=== PATIENT | female | born 1995 | race Caucasian/White ===

== ENCOUNTER 2016-06-12 17:50 | Emergency (ER) | payer BC ==
[~2016-06-12] VITALS: Ht 167.6 cm; Wt 63.6 kg
[~2016-06-12 17:50] MED LIST: CNC/36 PO; EPP3/2 IM; PRED20TA2 PO
[2016-06-12 17:53] VITALS: TEMP 36.5; Ht 167.6 cm; Wt 63.6 kg
[2016-06-12] MEDS ORDERED: BCPILLS PO (18:20)
[2016-06-12] MEDS ORDERED: LORAZEPAM 1 MG TAB SL STA (18:28)
[2016-06-12] MEDS ORDERED: ONDANSETRON INJ 2 MG/ML 2 ML VIAL IV STA (18:28)
[2016-06-12] MEDS ORDERED: KETOROLAC TROMETHAMINE 30 MG/ML VIAL IV STA (18:28)
[2016-06-12] MEDS ORDERED: SODIUM CHLORIDE 0.9% 1000ML 1,000 ML IV STA (18:28)
[2016-06-12 19:18] LABS: BASO % 0.1 %; BASO ABS # 0.01 K/uL (0-0.2); COMPLETE YES; HEMATOCRIT 43.2 % (37-47); IG% 0.2 %; LYMPH % 12.2 %; LYMPH ABS # 0.98 K/uL (1.2-3.4); MEAN CELL VOLUME 93.7 fL (80-100); MEAN CORPUSCULAR HEMOGLOBIN 31.9 pg (25-34); MONO % 4.1 %; NEUT % 83.4 %; PLATELET COUNT 269 K/uL (130-400); RED BLOOD COUNT 4.61 M/uL (4.2-5.4); WHITE BLOOD COUNT 8.01 K/uL (4.8-10.8)
[2016-06-12 19:27] LABS: BUN/CREATININE RATIO 27.8 (10-20); CALCIUM 8.9 mg/dl (8.5-10.1); CREATININE 0.66 mg/dl (0.60-1.20); POTASSIUM 4.1 mmol/L (3.5-5.1)
[2016-06-12] MEDS ORDERED: ONDA4TAB10 SL (20:23)
[2016-06-12 20:44] VITALS: BP 112/62; PULSE 73; O2SAT 99
--- NOTE | 2016-06-12 21:08 | EMERGENCY ROOM VISIT NOTE ---
History First contact with patient: 18:20 Chief Complaint: VOMITING Stated Complaint: VOMITING, DIARRHEA, DIZZINESS Nursing Triage Summary: pt reports NV since 0800 today denies fever and chills History of Present Illness The patient is a 21 year old female who presents to the Emergency Room with complaints of nausea, vomiting and watery diarrhea since awakening this morning around 8 AM. The patient reports that her brother and sister had similar symptoms over the past week. The patient just returned from [facility]. The patient does admit to drinking a significant amount of alcohol last night, but has not had any bloody vomitus. She denies prior history of peptic ulcer disease, GERD or gastritis. The patient has not noted any recent urinary symptoms. The patient does not feel chilled. She has been unable to tolerate fluids today, and presents for further evaluation. Review of Systems HEENT: Denies dizziness, visual problems, hearing loss, tinnitus. Denies difficulty swallowing or oral lesions. PULMONARY: Denies cough, shortness of breath, sputum production or hemoptysis. CARDIOVASCULAR: Denies chest pain, palpitations, dyspnea on exertion, orthopnea or peripheral edema. GASTROINTESTINAL: See history of present illness. GENITOURINARY: Denies dysuria, frequency, urgency or nocturia. NEUROLOGIC: Denies history of epilepsy, CVA, TIA or chronic headaches. MUSCULOSKELETAL: Denies history of joint tenderness/swelling. SKIN: Denies rashes or lesions. PSYCHIATRIC: Denies history of depression or mental illness. ENDOCRINE: Denies history of diabetes or thyroid disorders. Past Medical/Surgical History Medical Problems: (1) Tree nut allergy Family History No pertinent family history Social History Smoking Status: Never Smoker Alcohol Use: occasionally Marital Status: single Housing Status: lives with friends Occupation Status: student Current/Historical Medications Scheduled Control Pills ( Control Pills), 1 TAB PO QPM Epinephrine (Epipen), 0.3 MG IM UD Methylphenidate Hcl (Concerta), 36 MG PO DAILY Ondasetron Odt (Zofran Odt), 4 MG SL Q6H Allergies Coded Allergies: Nut Tree (Unverified Allergy, Unknown, ANAPHYLAXIS, 06/12/16) Physical Exam Vital Signs Date Time Temp Pulse Resp B/P Pulse Ox O2 Delivery O2 Flow Rate FiO2 06/12/16 20:44 73 18 112/62 99 06/12/16 19:44 82 18 102/66 98 Room Air 06/12/16 17:53 36.5 76 18 102/64 93 Room Air Pain Rating (0-10): 0 Physical Exam CONSTITUTIONAL: Healthy and well nourished. Alert and oriented X 3 with positive affect. Patient appears in moderate discomfort from nausea. HEENT: Normocephalic, atraumatic. Pupils equal, round and reactive. Ears and nares are clear. No scleral icterus or conjunctival injection/pallor. OROPHARYNX: Mucous membranes are dry. No significant posterior pharyngeal erythema. NECK: Full active range of motion without discomfort. RESPIRATORY: Clear to auscultation bilaterally with no wheezing, crackles, rhonchi or stridor. CARDIOVASCULAR: Regular rate and rhythm with no murmurs, rubs or gallops. GASTROINTESTINAL: Bowel sounds present in all quadrants. Patient has diffuse mild tenderness to palpation. Negative Krause sign. Negative McBurney's point tenderness. Negative CVA tenderness. Negative Rovsing sign. No abdominal rigidity, guarding or rebound. MUSCULOSKELETAL: Full range of motion of all joints without discomfort. INTEGUMENTARY: No rash or other significant dermatologic conditions noted. HEMATOLOGIC: No ecchymosis or petechiae noted. NEUROLOGIC: No focal neurologic deficits noted. Medical Decision & Procedures Laboratory Results 06/12/16 19:00 Red Blood Count 4.61, Mean Corpuscular Volume 93.7, Mean Corpuscular Hemoglobin 31.9, Mean Corpuscular Hemoglobin Concent 34.0, Mean Platelet Volume 12.0, Neutrophils (%) (Auto) 83.4, Lymphocytes (%) (Auto) 12.2, Monocytes (%) (Auto) 4.1, Eosinophils (%) (Auto) 0.0, Basophils (%) (Auto) 0.1, Neutrophils # (Auto) 6.67, Lymphocytes # (Auto) 0.98, Monocytes # (Auto) 0.33, Eosinophils # (Auto) 0.00, Basophils # (Auto) 0.01 06/12/16 19:00 Test 06/12/16 19:00 White Blood Count 8.01 K/uL (4.8-10.8) Red Blood Count 4.61 M/uL (4.2-5.4) Hemoglobin 14.7 g/dL (12.0-16.0) Hematocrit 43.2 % (37-47) Mean Corpuscular Volume 93.7 fL (80-100) Mean Corpuscular Hemoglobin 31.9 pg (25-34) Mean Corpuscular Hemoglobin Concent 34.0 g/dl (32-36) Platelet Count 269 K/uL (130-400) Mean Platelet Volume 12.0 fL (7.4-10.4) Neutrophils (%) (Auto) 83.4 % Lymphocytes (%) (Auto) 12.2 % Monocytes (%) (Auto) 4.1 % Eosinophils (%) (Auto) 0.0 % Basophils (%) (Auto) 0.1 % Neutrophils # (Auto) 6.67 K/uL (1.4-6.5) Lymphocytes # (Auto) 0.98 K/uL (1.2-3.4) Monocytes # (Auto) 0.33 K/uL (0.11-0.59) Eosinophils # (Auto) 0.00 K/uL (0-0.5) Basophils # (Auto) 0.01 K/uL (0-0.2) RDW Standard Deviation 42.7 fL (36.4-46.3) RDW Coefficient of Variation 12.6 % (11.5-14.5) Immature Granulocyte % (Auto) 0.2 % Immature Granulocyte # (Auto) 0.02 K/uL (0.00-0.02) Urine Test NEG (NEG) Anion Gap 6.0 mmol/L (3-11) Est Creatinine Clear Calc Drug Dose 126.1 ml/min Estimated GFR () 146.4 Estimated GFR (Non- 126.3 BUN/Creatinine Ratio 27.8 (10-20) Calcium Level 8.9 mg/dl (8.5-10.1) Total Bilirubin 0.4 mg/dl (0.2-1) Direct Bilirubin 0.1 mg/dl (0-0.2) Aspartate Amino Transf (AST/SGOT) 11 U/L (15-37) Alanine Aminotransferase (ALT/SGPT) 23 U/L (12-78) Alkaline Phosphatase 97 U/L (45-117) Total Creatine Kinase 78 U/L (26-192) Total Protein 7.8 gm/dl (6.4-8.2) Albumin 4.3 gm/dl (3.4-5.0) Lipase 59 U/L (73-393) The above labs were reviewed and were grossly normal. Urine dip stick was also normal with a negative urine . Medications Administered Medications (Trade) Dose Ordered Sig/Timo Route Start Time Stop Time Status Last Admin Dose Admin Ketorolac Tromethamine 30 mg 30 mg NOW STAT IV 06/12/16 18:28 06/12/16 18:30 DC 06/12/16 19:03 30 MG Sodium Chloride (Nss 1000ml) 1,000 ml @ 999 mls/hr Q1H1M STAT IV 06/12/16 18:28 06/12/16 19:28 DC 06/12/16 19:03 999 MLS/HR Ondansetron HCl (Zofran Inj) 4 mg NOW STAT IV 06/12/16 18:28 06/12/16 18:30 DC 06/12/16 19:03 4 MG Lorazepam (Ativan Tab) 1 mg NOW STAT SL 06/12/16 18:28 06/12/16 18:30 DC 06/12/16 18:39 1 MG Procedure 1. IV hydration: The patient received a liter normal saline bolus 2. IV medications: The patient was administered Toradol 30 mg and Zofran 4 mg IVP ED Course Patient history and physical exam were performed. Nurse's notes were reviewed. Vital signs were reviewed and were normal. IV access was established, and labs were drawn. The patient was hydrated with normal saline, and received IV medications as discussed in the previous Procedure section. Were reviewed and were grossly normal. The patient reports improvement of symptoms. She was able to tolerate saltine crackers and fluids without any nausea or vomiting. The patient was encouraged to limit oral intake over the next few days. Clear liquid diet. Advance diet as tolerated after 24 hours. The patient was provided a prescription for Zofran ODT as needed for nausea. She was encouraged to return for any worsening symptoms, belly pain, inability to remain hydrated or persistent vomiting. Otherwise she may follow-up with [facility] as needed. The patient was happy with plan of care , and voiced understanding of all discharge instructions. Medical Decision Patient presents to the [facility] department with complaint of nausea, vomiting and watery diarrhea. I suspect viral gastroenteritis as her siblings were also recently sick. She does admit to alcohol consumption last night, but I do not suspect alcoholic gastritis with watery diarrhea. Laboratory studies also are not suggestive of pancreatitis, hepatitis or cholecystitis. The patient does not have an acute abdomen on palpation. Impression Primary Impression: Gastroenteritis Departure Information Dispostion Home / Self-Care Prescriptions Ondasetron Odt (ZOFRAN ODT) 4 Mg Tab 4 MG SL Q6H for Nausea, #10 TAB Prov: Edwin Eng PA 06/12/16 Forms HOME CARE DOCUMENTATION FORM, IMPORTANT VISIT INFORMATION Patient Instructions A Signature Page, [facility] [place] Additional Instructions Drink plenty of fluids to remain well-hydrated. Clear liquid diet for 24-48 hrs, then slowly advance diet as tolerated. Zofran ODT as needed to prevent nausea. Imodium as needed for diarrhea. Tylenol 1000 mg every 6 hrs for pain/fever. Return to the ER for uncontrollable vomiting or inability to remain well- hydrated. Follow-up with [facility] as needed for any persistent symptoms..
== END 2016-06-12 20:45 | disposition home or self-care (01) ==
LOC: C.EDB 17:51 → C.EDC 20:45
DX: K52.9 Noninfective gastroenteritis and colitis, unspecified (principal)

== ENCOUNTER 2016-07-05 23:45 | Emergency (ER) | payer BC ==
[~2016-07-05] VITALS: Ht 167.6 cm; Wt 64.9 kg
[~2016-07-05 23:45] MED LIST changes: +BCPILLS PO; +ONDA4TAB10 SL; -PRED20TA2 PO
[2016-07-05 23:52] VITALS: TEMP 36.9; Ht 167.6 cm; Wt 64.9 kg
[2016-07-05] MEDS ORDERED: EpINEphrine INJ 1MG/ML AMP 1 MG/ML AMP ONE (23:52)
[2016-07-05] MEDS ORDERED: SODIUM CHLORIDE 0.9% 1000ML 1,000 ML IV STA (23:55)
[2016-07-05] MEDS ORDERED: LORAZEPAM 2 MG/ML 1 ML VIAL IV STA (23:55)
[2016-07-05] MEDS ORDERED: DiphenhydrAMINE HCL 50 MG/ML VIAL IV STA (23:55)
[2016-07-05] MEDS ORDERED: FAMOTIDINE IV INJ 20 MG in DEXTROSE 5% 100ML 100 ML IV STA (23:55)
[2016-07-06] MEDS ORDERED: DEXAMETHASONE SOD INJ 10 MG/ML VIAL IV ONE
--- NOTE | 2016-07-06 00:03 | EMERGENCY ROOM VISIT NOTE ---
History Report prepared by Melissa: Meredith Sierra Under the Supervision of: Dr. Ector Jones M.D. First contact with patient: 23:52 Chief Complaint: ALLERGIC REACTION Stated Complaint: TROUBLE BREATHING,FACE SWELLING Nursing Triage Summary: Patient c/o allergic reaction to nuts. Took 3 Benadryl tablets prior to coming to ED. States, "I think it's getting worse." Associates difficulty breathing. History of Present Illness The patient is a 21 year old female who presents to the Emergency Room with complaints of persistent, worsening allergic reaction that began a few hours ago. The patient states that she has a known allergy to nuts and accidentally ingested some this evening. She states that she took Benadryl after the ingestion, but denies taking her EpiPen. The patient states that she has always been allergic to nuts. She denies any abdominal pain or swelling in her legs. The patient notes that she has had slight difficulty breathing. Source of History: patient Onset: a few hours ago Position: other (global) Quality: other (allergic reaction) Timing: worsening, other (persistent) Associated Symptoms: + SOB (breathing difficulties), No abdominal pain Review of Systems See HPI for pertinent positives & negatives. A total of 10 systems reviewed and were otherwise negative. Past Medical & Surgical Medical Problems: (1) Tree nut allergy Family History No pertinent family history Social History Smoking Status: Never Smoker Alcohol Use: occasionally Marital Status: single Housing Status: lives with friends Occupation Status: student Current/Historical Medications Scheduled Control Pills ( Control Pills), 1 TAB PO QPM Methylphenidate Hcl (Concerta), 36 MG PO DAILY Methylprednisolone (Medrol Dosepak), 1 PKT PO UD Allergies Coded Allergies: Nut Tree (Unverified Allergy, Unknown, ANAPHYLAXIS, 06/12/16) Physical Exam Vital Signs Date Time Temp Pulse Resp B/P Pulse Ox O2 Delivery O2 Flow Rate FiO2 07/06/16 06:58 88 16 112/65 98 07/06/16 06:21 75 18 107/59 97 Room Air 07/06/16 04:45 79 18 110/69 96 Room Air 07/06/16 04:04 85 07/06/16 02:35 86 18 114/61 97 Room Air 07/06/16 01:38 102 18 99/48 98 Room Air 07/06/16 01:03 99 20 91/55 99 Room Air 07/06/16 00:47 107 20 120/79 100 Room Air 07/06/16 00:05 105 07/06/16 00:01 66 07/05/16 23:58 0 07/05/16 23:57 76 07/05/16 23:52 36.9 102 24 104/60 88 Room Air 07/05/16 23:48 95 Room Air Physical Exam GENERAL: Patient is in moderate distress and uncomfortable and anxious appearing. Crying. HEENT: Edema to eyelids, face, and lips, mucous membranes moist, no nasal congestion, no scleral icterus. NECK: No stridor, no adenopathy, no meningismus, trachea is midline. LUNGS: Diffuse wheezing. No dyspnea. No rhonchi. HEART: Tachycardic rate and regular rhythm. No murmurs, rubs, gallops appreciated. ABDOMEN: Soft, nontender, bowel sounds positive, no masses appreciated, no peritonitis. BACK: No midline tenderness, no CVA tenderness EXTREMITIES: Normal motion all extremities, no cyanosis, no edema. NEUROLOGIC: Alert and oriented, no acute motor or sensory deficits, no focal weakness, cranial nerves grossly intact. SKIN: Diffuse erythema of skin. Medical Decision & Procedures Medications Administered Medications (Trade) Dose Ordered Sig/Timo Route Start Time Stop Time Status Last Admin Dose Admin Epinephrine HCl 1 mg 1 mg STK-MED ONCE .ROUTE 07/05/16 23:52 07/05/16 23:53 DC 07/05/16 23:52 0.5 MG Sodium Chloride (Nss 1000ml) 1,000 ml @ 999 mls/hr Q1H1M STAT IV 07/05/16 23:55 07/06/16 00:55 DC 07/06/16 00:10 999 MLS/HR Dexamethasone Sodium Phosphate (Decadron Inj) 10 mg NOW ONCE IV 07/06/16 00:00 07/06/16 00:01 DC 07/06/16 00:07 10 MG Diphenhydramine HCl 50 mg 50 mg NOW STAT IV 07/05/16 23:55 07/05/16 23:56 DC 07/06/16 00:06 50 MG Famotidine/ Dextrose (Pepcid IV Inj/ D5 100ml) 102 ml @ 200 mls/hr NOW STAT IV 07/05/16 23:55 07/06/16 00:25 DC 07/06/16 00:09 200 MLS/HR Lorazepam (Ativan Inj) 1 mg NOW STAT IV 07/05/16 23:55 07/05/16 23:56 DC 07/06/16 00:06 1 MG ED Course 2353: The patient was evaluated in room A2. A complete history and physical exam was performed. 2352: Ordered Epinephrine HCl 1 mg .route. 2355: Ordered Ativan Inj 1 mg IV, Famotidine 20 mg/Dextrose 102 ml @ 200 mls/hr IV, Benadryl Inj 50 mg IV, Sodium Chloride 1000 ml @ 999 mls/hr IV. 0000: Ordered Decadron Inj 10 mg IV. 0002: The patient is feeling much improved with a heart rate of 70 bpm. The rash is gone and her oxygen saturation is 100% on room air. All swelling of her face is gone. 0021: I reevaluated the patient and she is feeling better, but feels a little dizzy. 0100: I reevaluated the patient and she still has edema of the eyelids, but appears much improved. 0201: I reevaluated the patient and she is sleeping soundly. She no longer has any eyelid edema. I told her friends that they could stay. 0236: I reevaluated the patient and she is sleeping comfortably. 0650: I reevaluated the patient and she is awake and feeling better. I discussed all the exam findings with her and I discussed the treatment plan. She verbalized complete understanding and agreement. She has had no further allergic reaction symptoms. She is ready to go home. Medical Decision Differential: Allergic Reaction, Urticaria, Anaphylaxis, Jerez-Cheko Syndrome, Toxic Epidermal Necrolysis, Erythema Multiforme, Cellulitis, amongst other etiologies entertained. 21 yr old female arrives in anaphylaxis after ingesting what she assumes was peanut product earlier. Wheezing, hypoxia and tachycardia with diffuse hives and facial swelling thus immediately given 0.5mg epinephrine IM. Patient then proceeded to "code" when IV placed however this was solely just a vagal response to her severe aversion to IVs. Very anxious and given ativan with rapid improvement. Rapid improvement in anaphylaxis post epi. Given benadryl/ decadron/pepcid. Watched closely while continuing to improve and felt further epi no longer indicated. She was breathing comfortably and in no distress. Did get quite tired but not somnolent/obtunded from above. Monitored throughout rest of the night given the severity of her symptoms. Vitals good throughout the night and patient feeling well. Discharged back to campus with instructions. She has epi pen already. Will do steroid taper over next few days given severity of her symptoms. Impression Primary Impression: Anaphylaxis Additional Impression: Syncope, vasovagal Critical Care I have personally spent greater than 35 minutes of critical care time in the direct management of this patient. This was a life/limb threatening event. This includes time spent evaluating patient, direct bedside care, chart review, placing orders, interpretation of diagnostic studies, discussion with consultants, patient, and family members, as well as other required patient management activities. This 35 minutes is in excess of all separately billable procedures. Scribe Attestation The scribe's documentation has been prepared under my direction and personally reviewed by me in its entirety. I confirm that the note above accurately reflects all work, treatment, procedures, and medical decision making performed by me. Departure Information Dispostion Home / Self-Care Prescriptions Methylprednisolone (MEDROL DOSEPAK) 4 Mg Azael 1 PKT PO UD for 6 Days, #1 PKT Prov: Ector Jones M.D. 07/06/16 Referrals [facility] Patient Instructions ED Anaphylaxis General, [facility] Problem Qualifiers Primary Impression: Anaphylaxis Encounter type: initial encounter Qualified Codes: T78.2XXA - Anaphylactic shock, unspecified, initial encounter
[2016-07-06] MEDS ORDERED: FAMOTIDINE 20MG/102 ML D5W ONE (00:07)
[2016-07-06] MEDS ORDERED: METH4PAK PO (06:04)
[2016-07-06 06:58] VITALS: BP 112/65; PULSE 88; O2SAT 98
== END 2016-07-06 07:00 | disposition home or self-care (01) ==
LOC: C.EDB 23:46 → C.EDA 07-06 07:00
DX: T78.2XXA Anaphylactic shock, unspecified, initial encounter (principal); X58.XXXA Exposure to other specified factors, initial encounter; R55 Syncope and collapse; Z79.3 Long term (current) use of hormonal contraceptives; Z79.899 Other long term (current) drug therapy

== ENCOUNTER 2016-09-16 14:47 | Emergency (ER) | payer BC ==
[~2016-09-16 14:47] MED LIST changes: -EPP3/2 IM; -ONDA4TAB10 SL
[2016-09-16 14:49] VITALS: TEMP 37
[2016-09-16] MEDS ORDERED: DiphenhydrAMINE HCL 50 MG/ML VIAL IV STA (14:57)
[2016-09-16] MEDS ORDERED: SODIUM CHLORIDE 0.9% 1000ML 1,000 ML IV STA (14:57)
[2016-09-16] MEDS ORDERED: EpINEphrine INJ 1MG/ML AMP 1 MG/ML AMP IM STA (14:57)
[2016-09-16] MEDS ORDERED: DEXAMETHASONE SOD INJ 4 MG/ML VIAL IV STA (14:57)
[2016-09-16] MEDS ORDERED: FAMOTIDINE 20MG/102 ML D5W IV STA (14:59)
[2016-09-16 15:07] LABS: BASO % 0.5 %; BASO ABS # 0.03 K/uL (0-0.2); COMPLETE YES; EOS % 0.5 %; HEMATOCRIT 44.2 % (37-47); LYMPH % 24.6 %; LYMPH ABS # 1.39 K/uL (1.2-3.4); MEAN CELL VOLUME 93.4 fL (80-100); MEAN CORPUSCULAR HEMOGLOBIN 31.5 pg (25-34); MEAN CORPUSCULAR HGB CONC 33.7 g/dl (32-36); MEAN PLATELET VOLUME 11.6 fL (7.4-10.4); MONO % 8.9 %; NEUT % 65.5 %; PLATELET COUNT 206 K/uL (130-400); RED BLOOD COUNT 4.73 M/uL (4.2-5.4); WHITE BLOOD COUNT 5.64 K/uL (4.8-10.8)
[2016-09-16] MEDS ORDERED: FAMOTIDINE 20MG/102 ML D5W ONE (15:07)
[2016-09-16 15:25] LABS: BLOOD UREA NITROGEN 17 mg/dl (7-18); BUN/CREATININE RATIO 21.8 (10-20); CALCIUM 9.1 mg/dl (8.5-10.1); CARBON DIOXIDE 27 mmol/L (21-32); CHLORIDE 105 mmol/L (98-107); CREATININE 0.76 mg/dl (0.60-1.20); GLUCOSE 94 mg/dl (70-99); POTASSIUM 4.1 mmol/L (3.5-5.1); SODIUM 140 mmol/L (136-145)
[2016-09-16] MEDS ORDERED: LORAZEPAM 2 MG/ML 1 ML VIAL IV STA (16:04)
[2016-09-16] MEDS ORDERED: ONDANSETRON INJ 2 MG/ML 2 ML VIAL ONE (16:07)
[2016-09-16] MEDS ORDERED: NURSING VERBAL MED ORDER ONE (16:15)
[2016-09-16] MEDS ORDERED: ONDANSETRON INJ 2 MG/ML 2 ML VIAL IV STA (16:27)
[2016-09-16 16:49] VITALS: O2SAT 94
[2016-09-16] MEDS ORDERED: PRED50TA PO (17:51)
--- NOTE | 2016-09-16 17:52 | EMERGENCY ROOM VISIT NOTE ---
History Report prepared by Melissa: Aureliano Cedillo Under the Supervision of: Dr. Don Reyes M.D. 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 She ate a pastry that unknowingly contained walnut. She has a history of anaphylaxis, and her last reaction was two months ago to macadamia nuts. She has been hospitalized for allergic reaction in the past. The patient has an EpiPen but did not use it as it was not on her. 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 The patient feels like her throat is itchy and tight, which is making it difficult for her to swallow. The patient is not have too much trouble breathing at this time. She is also nauseous. She feels like her eyes are starting to swell up. A friend at bedside notes that her voice is more muffled than baseline. She has not noticed any hives up to this point. She denies any other medical problems. She is on Concerta. Patient denies LOC, headache, fevers, chills, diaphoresis, visual changes, neck pain, chest pain, vomiting, abdominal pain, back pain, melena, hematochezia, urinary symptoms, numbness, weakness, lymphadenopathy, rash, or other complaints. 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 A total of ten systems were reviewed and were otherwise negative. Past Medical & Surgical Medical Problems: (1) Tree nut allergy Family History No pertinent family history Social History Smoking Status: Never Smoker Alcohol Use: occasionally Marital Status: single Housing Status: lives with friends Occupation Status: student Current/Historical Medications Scheduled Methylphenidate Hcl (Concerta), 36 MG PO DAILY Allergies Coded Allergies: Nut Tree (Unverified Allergy, Unknown, ANAPHYLAXIS, 09/16/16) Physical Exam Vital Signs Date Time Temp Pulse Resp B/P Pulse Ox O2 Delivery O2 Flow Rate FiO2 09/16/16 16:49 94 Nasal Cannula 2.0 09/16/16 16:48 89 Room Air 09/16/16 16:31 135 20 135/64 96 Room Air 09/16/16 15:25 113 20 115/82 100 Room Air 09/16/16 15:18 99 Room Air 09/16/16 15:09 121 09/16/16 14:56 100 Room Air 09/16/16 14:49 37.0 124 18 110/75 96 Room Air Physical Exam GENERAL: Awake, alert, uncomfortable-appearing, in no distress, muffled voice. HENT: Normocephalic, atraumatic. Oropharynx unremarkable. EYES: Normal conjunctiva. Sclera non-icteric. NECK: Supple. No nuchal rigidity. FROM. No JVD. RESPIRATORY: Clear to auscultation. CARDIAC:Tachycardic, normal rhythm. Extremities warm and well perfused. Pulses equal. ABDOMEN: Soft, non-distended. No tenderness to palpation. No rebound or guarding. No masses. RECTAL: Deferred. MUSCULOSKELETAL: Chest examination reveals no tenderness. The back is symmetrical on inspection without obvious abnormality. There is no CVA tenderness to palpation. No joint edema. LOWER EXTREMITIES: Calves are equal size bilaterally and non-tender. No edema. No discoloration. NEURO: Normal sensorium. No sensory or motor deficits noted. SKIN: No rash or jaundice noted. Medical Decision & Procedures Laboratory Results 09/16/16 14:55 Red Blood Count 4.73, Mean Corpuscular Volume 93.4, Mean Corpuscular Hemoglobin 31.5, Mean Corpuscular Hemoglobin Concent 33.7, Mean Platelet Volume 11.6, Neutrophils (%) (Auto) 65.5, Lymphocytes (%) (Auto) 24.6, Monocytes (%) (Auto) 8.9, Eosinophils (%) (Auto) 0.5, Basophils (%) (Auto) 0.5, Neutrophils # (Auto) 3.69, Lymphocytes # (Auto) 1.39, Monocytes # (Auto) 0.50, Eosinophils # (Auto) 0.03, Basophils # (Auto) 0.03 09/16/16 14:55 Test 09/16/16 14:55 09/16/16 14:57 White Blood Count 5.64 K/uL (4.8-10.8) Red Blood Count 4.73 M/uL (4.2-5.4) Hemoglobin 14.9 g/dL (12.0-16.0) Hematocrit 44.2 % (37-47) Mean Corpuscular Volume 93.4 fL (80-100) Mean Corpuscular Hemoglobin 31.5 pg (25-34) Mean Corpuscular Hemoglobin Concent 33.7 g/dl (32-36) Platelet Count 206 K/uL (130-400) Mean Platelet Volume 11.6 fL (7.4-10.4) Neutrophils (%) (Auto) 65.5 % Lymphocytes (%) (Auto) 24.6 % Monocytes (%) (Auto) 8.9 % Eosinophils (%) (Auto) 0.5 % Basophils (%) (Auto) 0.5 % Neutrophils # (Auto) 3.69 K/uL (1.4-6.5) Lymphocytes # (Auto) 1.39 K/uL (1.2-3.4) Monocytes # (Auto) 0.50 K/uL (0.11-0.59) Eosinophils # (Auto) 0.03 K/uL (0-0.5) Basophils # (Auto) 0.03 K/uL (0-0.2) RDW Standard Deviation 42.1 fL (36.4-46.3) RDW Coefficient of Variation 12.3 % (11.5-14.5) Immature Granulocyte % (Auto) 0.0 % Immature Granulocyte # (Auto) 0.00 K/uL (0.00-0.02) Anion Gap 8.0 mmol/L (3-11) Estimated GFR () 130.0 Estimated GFR (Non- 112.1 BUN/Creatinine Ratio 21.8 (10-20) Calcium Level 9.1 mg/dl (8.5-10.1) Laboratory results reviewed by me Medications Administered Medications (Trade) Dose Ordered Sig/Timo Route Start Time Stop Time Status Last Admin Dose Admin Sodium Chloride (Nss 1000ml) 1,000 ml @ 999 mls/hr Q1H1M STAT IV 09/16/16 14:57 09/16/16 15:57 DC 09/16/16 15:07 999 MLS/HR Epinephrine HCl (EpINEphrine INJ 1MG/ML AMP/VIAL) 0.3 mg NOW STAT IM 09/16/16 14:57 09/16/16 14:58 DC 09/16/16 14:57 0.3 MG Diphenhydramine HCl (Benadryl Inj) 50 mg NOW STAT IV 09/16/16 14:57 09/16/16 14:58 DC 09/16/16 15:07 50 MG Dexamethasone Sodium Phosphate (Decadron Inj) 10 mg NOW STAT IV 09/16/16 14:57 09/16/16 14:58 DC 09/16/16 15:07 10 MG Famotidine (Pepcid 20mg/100 ml) 20 mg ONE STAT IV 09/16/16 14:59 09/16/16 15:01 DC 09/16/16 15:07 20 MG Ondansetron HCl (Zofran Inj) 4 mg STK-MED ONCE .ROUTE 09/16/16 16:07 09/16/16 16:08 DC 09/16/16 16:05 4 MG Lorazepam (Ativan Inj) 1 mg NOW STAT IV 09/16/16 16:04 09/16/16 16:05 DC 09/16/16 16:12 1 MG Ondansetron HCl (Zofran Inj) 4 mg NOW STAT IV 09/16/16 16:27 09/16/16 16:28 DC 09/16/16 16:31 4 MG ED Course 1454: The patient was evaluated in room B1. A complete history and physical exam was performed. 1457: Decadron 10 mg IV, Benadryl 50 mg IV, Epinephrine 0.3 mg IM, NSS 1000 ml @ 999 mls/hr. 1459: Famotidine 20 mg IV. 1500: The patient was moved to room B2. 1524: Checked on the patient. 1530: The patient is feeling a lot better. 1600: The patient had increased nausea and vomited. She is getting Zofran. 1604: Ativan 1 mg IV. 1607: Zofran 4 mg IV. 1627: Zofran 4 mg IV. 1700: Reassessed the patient. She is resting comfortably. 1750: Patient is doing well. All symptoms have abated. She wished to be discharged. Reviewed outpatient treatment and follow-up, and return instructions. Medical Decision Prior records/ancillary studies reviewed. Triage Nursing notes reviewed and agree them. Additional history obtained from the patient's friend The patient's history was concerning for possible allergic reaction. Differential diagnosis: Etiologies such as allergic reaction, anaphylaxis, urticaria, Jerez-Cheko syndrome, toxic epidermal necrolysis, erythema multiforme, cellulitis, as well as others were entertained. Physical examination: As above. ER treatment provided: Continuous cardiac monitoring Benadryl 50 mg IV Pepcid 20 mg IV Decadron 10 mg IV Epinephrine IM On reassessment the patient felt better. The patient then had some nausea and one episode of vomiting and was anxious. She received Zofran 4 mg IV 2 Ativan IV. Diagnostic interpretation by me: The labs revealed an unremarkable CBC and chem panel Imaging studies: Deferred It appears the patient had an allergic reaction. The above treatment did well to reverse the symptoms. After prolonged monitoring and frequent reassessments the patient did very well and symptoms resolved. She desired discharge. She has an EpiPen prescription. She has no known allergies. She will need close follow-up. She'll follow up with [facility] tomorrow. By the evaluation outlined above emergent etiologies such as airway compromise, Jerez-Cheko syndrome, toxic epidermal necrolysis, erythema multiforme, cellulitis, as well as others were deemed relatively unlikely. The patient was informed about the findings as listed above. All questions were answered and she was pleased with the treatment. Return instructions were outlined and the patient was discharged in stable condition. Outpatient prescription management: prednisone Referral: The patient was referred back to her primary care physician for follow-up tomorrow for a recheck of the current condition. The chart was completed utilizing [employer] Speech voice recognition software. Grammatical errors, random word insertions, pronoun errors, and incomplete sentences are an occasional side effect of this system due to software limitations, ambient noise, and hardware issues. Any formal questions or concerns about the content, text, or information contained within the body of this dictation should be directly addressed to the physician for clarification. Impression Primary Impression: Allergic reaction Scribe Attestation The scribe's documentation has been prepared under my direction and personally reviewed by me in its entirety. I confirm that the note above accurately reflects all work, treatment, procedures, and medical decision making performed by me. Departure Information Dispostion Home / Self-Care Prescriptions Prednisone (Prednisone) 50 Mg Tab 50 MG PO DAILY for 3 Days, #3 TAB Prov: Don Reyes MD 09/16/16 Referrals No Doctor, Assigned (PCP) Forms HOME CARE DOCUMENTATION FORM, IMPORTANT VISIT INFORMATION Patient Instructions My [facility] Additional Instructions ALLERGIC REACTION INSTRUCTIONS: DO NOT drive, drink alcohol, operate machinery, or perform dangerous activities today. You were given medications in the ER that can affect your ability to safely function or operate a vehicle. Epi-Pen: Use one injection as instructed for severe allergic reactions associated with shortness of breath, difficulty breathing, or throat or tongue swelling. If you use this injection call 911 or proceed immediately to the nearest Emergency Room. Prednisone 50mg: Once daily until the prescription is finished. It is best to take this earlier in the day as some patients note occasional difficulty falling asleep when taken in the late evening. Diphenhydramine(Benadryl) 25mg: use 25 to 50 mg every six hours for swelling, itching, or hives. This medication is sedating and will cause drowsiness. Avoid alcohol, operating machinery or dangerous equipment, working on ladders or roofs, DRIVING, or situations where being under the influence may be dangerous. Zantac 75: Take two pills twice a day along with Benadryl as needed for swelling , itching, or hives. Most people know this for its affect on the stomach, but it also acts similar to, but less potent than Benadryl for allergic reactions. Both the Benadryl and the Zantac are available [id number]. Continue current medications. Return to the emergency department for worsening of your rash, swelling of your face, lips, tongue, or throat, difficulty breathing, vomiting, or as needed. Follow-up with your primary care physician in 2 to 3 days for a recheck of your current condition. Problem Qualifiers Primary Impression: Allergic reaction Encounter type: initial encounter Qualified Codes: T78.40XA - Allergy, unspecified, initial encounter
[2016-09-16 18:21] VITALS: BP 118/76; PULSE 118; O2SAT 99
== END 2016-09-16 18:23 | disposition home or self-care (01) ==
LOC: C.EDB 14:47
DX: T78.05XA Anaphylactic reaction due to tree nuts and seeds, initial encounter (principal); X58.XXXA Exposure to other specified factors, initial encounter